=== PATIENT | female | born 1985 | race African-American/Black ===

== ENCOUNTER 2017-06-09 21:36 | Emergency (ER) | payer MEDICAID ==
[~2017-06-09] VITALS: Ht 162.6 cm; Wt 88.9 kg
[2017-06-09] MEDS ORDERED: NKM (21:46)
[2017-06-09 21:51] VITALS: BP 122/86
[2017-06-09] MEDS ORDERED: Ketorolac 60mg Inj IM ONE (22:00)
[2017-06-09] MEDS ORDERED: IBUPROFEN800 M1 PO (22:03)
--- NOTE | 2017-06-09 22:08 | Emergency Room Report ---
History of Present Illness General Chief Complaint: Headache Source: Patient Present Illness HPI [id number] [employer] walk-in with 2 days intermittent right sided temporal headache 03/04, pulsatile Assoc with nausea and some photophobia Denies neck pain/stiffness, fever/chills, vomiting, sick contacts Denies history of migraines Taking ibuprofen, tylenol Last took Tylenol 4 hours ago Didnt take ibuprofen today Allergies: Coded Allergies: No Known Allergies (Unverified , 03/22/14) Patient History Past Medical History: none Past Surgical History: none Pertinent Family History: none Social History: Denies: smoking, alcohol use, drug use Last Menstrual Period: 4 days ago Now: No Immunizations: UTD Reviewed Nursing Documentation: PMH: Agreed, PSxH: Agreed Nursing Documentation-PMH Past Medical History: No Stated History Review of Systems All Other Systems: negative except mentioned in HPI Physical Exam Vital Signs Date Time Temp Pulse Resp B/P (MAP) Pulse Ox O2 Delivery O2 Flow Rate FiO2 06/09/17 21:40 98.1 93 16 122/86 100 Room Air Sp02 EP Interpretation: reviewed, normal General Appearance: normal inspection, well appearing, no apparent distress, alert, GCS 15, non-toxic Head: normocephalic, atraumatic Eyes: bilateral eye PERRL, bilateral eye EOMI ENT: normal ENT inspection, hearing grossly normal, normal pharynx, no angioedema, normal voice Neck: normal inspection, full range of motion, supple, no meningismus, no bony tend Respiratory: normal inspection, lungs clear, normal breath sounds, no respiratory distress, no retraction, no wheezing Cardiovascular #1: regular rate, rhythm, no edema Gastrointestinal: normal inspection, normal bowel sounds, non tender, soft, no guarding, no hernia Genitourinary: no CVA tenderness Musculoskeletal: normal inspection, back normal, normal range of motion, Nehemias' s Sign negative Neurologic: normal inspection, alert, oriented x3, responsive, global marketing manager III-XII nml as tested, motor strength/tone normal, speech normal Psychiatric: normal inspection, judgement/insight normal, mood/affect normal Skin: normal inspection Lymphatic: normal inspection Medical Decision Making Diagnostic Impression: Primary Impression: Headache Qualified Codes: G44.209 - Tension-type headache, unspecified, not intractable ER Course Tension headache vs migraine VSS. Afebrile No focal neuro deficits No meningismus Unlikely SAH or meningitis given above and well appearing and intermittent symptoms Toradol given in ED Rx Ibuprofen PMD followup for Neuro referral if no improvement Last Vital Signs Date Time Temp Pulse Resp B/P (MAP) Pulse Ox O2 Delivery O2 Flow Rate FiO2 06/09/17 21:51 98.1 93 16 122/86 100 Room Air Status: improved Disposition: HOME, SELF-CARE Condition: Improved Scripts Ibuprofen (Ibuprofen) 800 Mg Tablet 800 MG PO TID for headache for 7 Days, #30 TAB Prov: HAYLEY JEWELL M.D. 06/09/17 Patient Instructions: Tension Headache, Migraine Headache Additional Instructions: - Take only 800mg motrin every 8 hours with food - Follow up with your doctor for a neurology referral if headaches continue HAYLEY JEWELL M.D. Jun 09, 2017 22:08
[2017-06-09 22:15] VITALS: BP 122/86
== END 2017-06-09 22:15 | disposition home or self-care (01) ==
LOC: EMR 21:56
DX: R51 Headache (principal)
CPT/HCPCS: 96372; 99283

== ENCOUNTER 2018-01-27 13:18 | Emergency (ER) | payer MEDICAID ==
[~2018-01-27] VITALS: Ht 165.1 cm; Wt 89.8 kg
[~2018-01-27 13:18] MED LIST: IBUPROFEN800 M1 PO; NKM
[2018-01-27 13:50] VITALS: BP 107/63
--- NOTE | 2018-01-27 13:56 | Emergency Room Report ---
History of Present Illness General Chief Complaint: Back Pain-No Injury Source: Patient Present Illness HPI 32-year-old female patient presents to ER complaining of low back pain past few weeks. Patient reports that there was no injury or accident that precipitated pain. Patient reports back pain feels like "muscle tightness" that radiates down her buttock to her legs. States that it occurs bilaterally. Patient reports that the pain is intermittent. denies bowel or bladder incontinence. Denies dysuria, hematuria. Denies IV drug use. Denies history of cancer. Denies history of surgery. Denies fever, chest pain, shortness breath, abdominal pain. Patient denies . Allergies: Coded Allergies: No Known Allergies (Unverified , 03/22/14) Patient History Past Medical History: see triage record Last Menstrual Period: 01/24/2018 Reviewed Nursing Documentation: PMH: Agreed; PSxH: Agreed Nursing Documentation-PMH Past Medical History: No Stated History Review of Systems All Other Systems: negative except mentioned in HPI Physical Exam Vital Signs Date Time Temp Pulse Resp B/P (MAP) Pulse Ox O2 Delivery O2 Flow Rate FiO2 01/27/18 13:32 98.1 103 18 107/63 94 Room Air 98.1 Sp02 EP Interpretation: reviewed, normal General Appearance: well appearing, no apparent distress, alert, GCS 15, non- toxic Head: normocephalic, atraumatic Neck: full range of motion Respiratory: lungs clear, normal breath sounds, no rhonchi, no respiratory distress, no accessory muscle use, no wheezing, speaking full sentences Cardiovascular #1: regular rate, rhythm, no edema Musculoskeletal: back normal, digits/nails normal, gait/station normal, normal range of motion, no calf tenderness, Nehemias's Sign negative, other - no bony stepoff, no no bony tenderness, tender - lumbosacral region bilaterally Neurologic: alert, oriented x3, responsive, motor strength/tone normal, DTRs symmetric, sensory intact, cerebellar normal, normal gait, other - SLR positive bilaterally Psychiatric: mood/affect normal Skin: no rash Lymphatic: no adenopathy Medical Decision Making PA Attestation Dr. Her is my supervising Physician whom patient management has been discussed with. Diagnostic Impression: Primary Impression: Back pain ER Course Pt presents to ED c/o back pain. DDX considered but are not limited to sprain, strain, cauda equine, epidural abscess, AAA, spinal cord compression, kidney stones. Low suspicion for cauda equina, no bowel or bladder incontinence or retention. VITAL SIGNS are WNL, patient is afebrile Ordered pain medication, imaging, labs. ER COURSE: PE positive SLR, probably sciatica symptoms. Informed patient. Need outpatient followup and imaging. UA negative for nitrites, no symptoms, low suspicion for UTI. Discuss results with patient. Xray of lumbar spine shows no acute fracture per the preliminary reading. Discuss results with patient, provided patient with CD of imaging. Followup with pain management and/or PT. Request referral from PCP. Followup wtih PCP for further MRI and/or CT imaging as needed. Patient reports feeling better following the administration of medication. Patient resting comfortably, nontoxic appearing, walking independently without difficulty. DISCHARGE: -Rx provided for Tylenol -Rx provided for Lidocaine patch -Rx provided for Robaxin. SE may cause drowsiness, do not take prior to drinking , driving, or operating [employer] machinery. At this time pt. is stable for d/c to home. At this time patient is resting comfortably, in no acute distress, nontoxic appearing, smiling and talking without difficulty. Will provide printed patient care instructions, and any necessary prescriptions. Patient instructed to follow with primary care provider for further treatment and referral as needed. Care plan and follow up instructions have been discussed with the patient prior to discharge. Patient reports understanding and agreement to treatment plan. Patient questions asked and answered. ER precautions given, patient instructed to return to ER immediately for any new or worsening of symptoms. - Please note that this Emergency Department Report was dictated using [employer] body straightener technology software, occasionally this can lead to erroneous entry secondary to interpretation by the dictation equipment. Labs Test 01/27/18 13:35 Urine Color Pale yellow Urine Appearance Clear Urine pH 6 (4.5-8.0) Urine Specific [place] 1.015 (1.005-1.035) Urine Protein Negative (NEGATIVE) Urine Glucose (UA) Negative (NEGATIVE) Urine Ketones Negative (NEGATIVE) Urine Occult Blood Negative (NEGATIVE) Urine Nitrite Negative (NEGATIVE) Urine Bilirubin Negative (NEGATIVE) Urine Urobilinogen Normal MG/DL (0.0-1.0) Urine Leukocyte Esterase 1+ (NEGATIVE) Urine RBC 0-2 /HPF (0 - 2) Urine WBC 0-2 /HPF (0 - 2) Urine Squamous Epithelial Cells Few /LPF (NONE/OCC) Urine Bacteria Occasional /HPF (NONE) Urine Mucus Few /LPF (NONE/OCC) Other X-Ray Diagnostic Results Other X-Ray Diagnostic Results : X-Ray ordered: lumbar spine # of Views/Limited Vs Complete: 3 View Indication: Pain EP Interpretation: Yes PA Xray: Interpretation reviewed, by supervising MD, and agrees with findings. Interpretation: no dislocation, no soft tissue swelling, no fractures Impression: No acute disease MONIQUE Scriblia Text Santiago French PA-C Last Vital Signs Date Time Temp Pulse Resp B/P (MAP) Pulse Ox O2 Delivery O2 Flow Rate FiO2 01/27/18 13:32 98.1 103 18 107/63 94 Room Air 98.1 Disposition: HOME, SELF-CARE Condition: Stable Scripts Lidocaine (Lidocaine) 1 Each Adh..patch 700 MG TP DAILY for 7 Days, #7 PATCH Prov: Francis French 01/27/18 Acetaminophen* (TYLENOL EXTRA STRENGTH*) 500 Mg Tablet 500 MG ORAL Q8H PRN for Prn Headache/Temp > 101, #30 TAB 0 Refills Prov: Francis French 01/27/18 Methocarbamol* (METHOCARBAMOL*) 500 Mg Tablet 500 MG ORAL TID PRN for For Pain, #15 TAB 0 Refills Prov: Francis French 01/27/18 Patient Instructions: Back Pain, Adult, Sciatica Additional Instructions: Followup with primary care provider in 3 -5 days. Discuss need for further imaging at that time. Discuss treatment for sciatica at that time. Patient instructed on rest, ice and heat for neck pain. Muscle relaxant may cause drowsiness, do not take before drinking, driving, or operating heavy machinery. Take medications as directed. Patient questions asked and answered. ER precautions given, patient instructed to return to ER immediately for any new or worsening of symptoms including but not limited to fever, chest pain, SOB , gina or bladder incontinence. Francis French January 27, 2018 13:56
[2018-01-27] MEDS ORDERED: Acetaminophen 500mg (ES) tab ORAL ONE (14:00)
[2018-01-27] MEDS ORDERED: Methocarbamol 500mg tab ORAL ONE (14:00)
[2018-01-27 14:15] LABS: APPEARANCE,URINE CLEAR; BILIRUBIN, URINE NEGATIVE (NEGATIVE); COLOR,URINE PALE YELLOW; GLUCOSE, URINE (UA) NEGATIVE (NEGATIVE); KETONES,URINE NEGATIVE (NEGATIVE); LEUKOCYTE ESTERASE ,URINE 1+ (NEGATIVE); NITRITE,URINE NEGATIVE (NEGATIVE); PH,URINE 6 (4.5-8.0); PROTEIN,URINE NEGATIVE (NEGATIVE); UROBILINOGEN,URINE NORMAL MG/DL (0.0-1.0)
[2018-01-27] MEDS ORDERED: LIDOCAINE700 M1 TP (15:07)
[2018-01-27] MEDS ORDERED: TYLENOL EXTRA500 MG ORAL (15:07)
[2018-01-27] MEDS ORDERED: METHOCARBAMOL500 MG ORAL (15:07)
[2018-01-27 16:27] VITALS: BP 107/63
== END 2018-01-27 16:28 | disposition home or self-care (01) ==
LOC: EMR 14:10
DX: M54.5 Low back pain (principal)
CPT/HCPCS: 72020; 81003; 99284

== ENCOUNTER 2020-02-26 13:33 | Emergency (ER) | payer MEDICAID ==
[~2020-02-26] VITALS: Ht 162.6 cm; Wt 90.7 kg
[~2020-02-26 13:33] MED LIST changes: +LIDOCAINE700 M1 TP; +METHOCARBAMOL500 MG ORAL; +TYLENOL EXTRA500 MG ORAL
--- NOTE | 2020-02-26 14:22 | Emergency Room Report ---
History of Present Illness General Chief Complaint: Complications Source: Patient Present Illness HPI 34-year-old female presents to the emergency department complaining of dysuria, scant vaginal bleeding and 4 out of 10 severity lower abdominal cramping progressive x2 days. Patient denies fevers or chills. Patient reports she is 22 weeks . Patient reports she is G2, P1 with no previous complications during her first . Patient states she has been receiving adequate care. She denies nausea, vomiting, abdominal tenderness or vaginal discharge. Patient denies low back pain. Patient states she is not sure what blood type she is. She denies having a history of any blood dyscrasia or anemia. No other aggravating or relieving factors at this time. Allergies: Coded Allergies: No Known Allergies (Unverified , 03/22/14) COVID-19 Screening Contact w/high risk pt: No Recent Travel to affected area: No Experienced COVID-19 symptoms?: No COVID-19 Testing performed CRUTCHER HELPER: No Patient History Past Medical History: see triage record Past Surgical History: none Pertinent Family History: none Now: Yes - 22 weeks : 2 Para: 1 Reviewed Nursing Documentation: PMH: Agreed; PSxH: Agreed Nursing Documentation-PMH Past Medical History: No Stated History Review of Systems All Other Systems: negative except mentioned in HPI Physical Exam Vital Signs Date Time Temp Pulse Resp B/P (MAP) Pulse Ox O2 Delivery O2 Flow Rate FiO2 02/26/20 13:49 98.2 110 20 121/86 (98) 98 Sp02 EP Interpretation: reviewed, normal General Appearance: no apparent distress, alert, GCS 15, non-toxic Head: normocephalic, atraumatic Eyes: bilateral eye normal inspection, bilateral eye PERRL ENT: hearing grossly normal, normal voice Neck: full range of motion Respiratory: lungs clear, normal breath sounds, no respiratory distress, no wheezing, speaking full sentences Cardiovascular #1: regular rate, rhythm Gastrointestinal: normal bowel sounds, non tender, soft, non-distended Genitourinary: normal inspection, no CVA tenderness, deferred - for US Musculoskeletal: back normal, normal range of motion, gait/station normal, non- tender Neurologic: alert, motor strength/tone normal, oriented x3, sensory intact, responsive, speech normal Psychiatric: judgement/insight normal Skin: no rash Medical Decision Making PA Attestation Dr. Her is my supervising Physician whom patient management has been discussed with. Diagnostic Impression: Primary Impression: UTI (urinary tract infection) Qualified Codes: N30.01 - Acute cystitis with hematuria ER Course 34-year-old female presents to the emergency department complaining of dysuria, scant vaginal bleeding and 4 out of 10 severity lower abdominal cramping progressive x2 days. Patient denies fevers or chills. Patient reports she is 22 weeks . Patient reports she is G2, P1 with no previous complications during her first . Patient states she has been receiving adequate care. She denies nausea, vomiting, abdominal tenderness or vaginal discharge. Patient denies low back pain. Patient states she is not sure what blood type she is. She denies having a history of any blood dyscrasia or anemia. No other aggravating or relieving factors at this time. Ddx considered but are not limited to: Fibroid, ectopic , Fibroid, Spontaneous ,placenta previa, placenta abruptio Vital signs: are WNL, pt. is afebrile H&PE are most consistent with: spotting during early , Inevitable , Spontaneous ORDERS: -CBC: Anemia - hgb 9.0 -UA: Increase in inflammatory markers as well as presence of few bacteria-- c/w UTI -Urine hcg- Positive -Serum Hcg Quant: 14,053 - Blood/RH type and screen- see attached labs -Pelvic US complete-single IUP approx 21 weeks, with heart rate of 154, no free fluid cervical length of 3.5 cm. ED INTERVENTIONS: None at this time. DISCHARGE: At this time pt. is stable for d/c to home. Will provide printed patient care instructions, and any necessary prescriptions. Care plan and follow up instructions have been discussed with the patient prior to discharge. Labs Test 02/26/20 14:00 02/26/20 14:10 Urine Color Yellow Urine Appearance Clear Urine pH 6.5 (4.5-8.0) Urine Specific [place] 1.010 (1.005-1.035) Urine Protein Negative (NEGATIVE) Urine Glucose (UA) Negative (NEGATIVE) Urine Ketones Negative (NEGATIVE) Urine Blood 1+ (NEGATIVE) Urine Nitrite Negative (NEGATIVE) Urine Bilirubin Negative (NEGATIVE) Urine Urobilinogen Normal MG/DL (0.0-1.0) Urine Leukocyte Esterase 3+ (NEGATIVE) Urine RBC 0-2 /HPF (0 - 2) Urine WBC 20-30 /HPF (0 - 2) Urine Squamous Epithelial Cells Few /LPF (NONE/OCC) Urine Bacteria Few /HPF (NONE) White Blood Count 9.3 K/UL (4.8-10.8) Red Blood Count 4.26 M/UL (4.20-5.40) Hemoglobin 9.0 G/DL (12.0-16.0) Hematocrit 28.3 % (37.0-47.0) Mean Corpuscular Volume 66 FL (80-99) Mean Corpuscular Hemoglobin 21.2 PG (27.0-31.0) Mean Corpuscular Hemoglobin Concent 32.0 G/DL (32.0-36.0) Red Cell Distribution Width 14.8 % (11.6-14.8) Platelet Count 317 K/UL (150-450) Mean Platelet Volume 6.2 FL (6.5-10.1) Neutrophils (%) (Auto) % (45.0-75.0) Lymphocytes (%) (Auto) % (20.0-45.0) Monocytes (%) (Auto) % (1.0-10.0) Eosinophils (%) (Auto) % (0.0-3.0) Basophils (%) (Auto) % (0.0-2.0) Differential Total Cells Counted 100 Neutrophils % (Manual) 62 % (45-75) Lymphocytes % (Manual) 26 % (20-45) Monocytes % (Manual) 6 % (1-10) Eosinophils % (Manual) 2 % (0-3) Basophils % (Manual) 0 % (0-2) Band Neutrophils 4 % (0-8) Platelet Estimate Adequate Platelet Morphology Normal Hypochromasia 1+ Anisocytosis 1+ Microcytosis 1+ Schistocytes Occasional Human Chorionic Gonadotropin, Quant 20070 mIU/mL (1-6) CT/MRI/US Diagnostic Results CT/MRI/US Diagnostic Results : Imaging Test Ordered: OB US > 14 wks Impression "Single IUP approx 21 weeks, with heart rate of 154, no free fluid cervical length of 3.5 cm." --- Per official radiology report- Please see report for specific details. Last Vital Signs Date Time Temp Pulse Resp B/P (MAP) Pulse Ox O2 Delivery O2 Flow Rate FiO2 6/3/20 13:49 98.2 110 20 121/86 (98) 98 Disposition: HOME, SELF-CARE Condition: Stable Scripts Cephalexin* (KEFLEX*) 500 Mg Capsule 500 MG ORAL EVERY 12 HOURS for 7 Days, #14 CAP 0 Refills Prov: Lizzie Calderón 02/26/20 Iron,Carbonyl/Vit C/Vit B12/Fa (IRON 100 PLUS TABLET) 1 Each Tablet 1 EACH PO BID, #14 TAB Prov: Lizzie Calderón 02/26/20 Patient Instructions: Anemia, Nonspecific, Urinary Tract Infection, Easy-to- Read Additional Instructions: Take medications as directed. Follow up with a OBGYN within 3 days, even if your symptoms have resolved. US shows 21 Weeks IUP with HR of 154. Return sooner to ED if new symptoms occur, or current symptoms become worse. - Please note that this Emergency Department Report was dictated using [employer] tender technology software, occasionally this can lead to erroneous entry secondary to interpretation by the dictation equipment. Lizzie Calderón Feb 26, 2020 14:22
[2020-02-26 14:41] LABS: HEMATOCRIT 28.3 % (37.0-47.0); MEAN CORPUSCULAR VOLUME 66 FL (80-99); PLATELET COUNT 317 K/UL (150-450); RED BLOOD COUNT 4.26 M/UL (4.20-5.40); RED CELL DISTRIBUTION WIDTH 14.8 % (11.6-14.8); WHITE BLOOD COUNT 9.3 K/UL (4.8-10.8)
[2020-02-26 14:51] LABS: APPEARANCE,URINE CLEAR; BILIRUBIN, URINE NEGATIVE (NEGATIVE); GLUCOSE, URINE (UA) NEGATIVE (NEGATIVE); KETONES,URINE NEGATIVE (NEGATIVE); LEUKOCYTE ESTERASE ,URINE 3+ (NEGATIVE); NITRITE,URINE NEGATIVE (NEGATIVE); PH,URINE 6.5 (4.5-8.0); PROTEIN,URINE NEGATIVE (NEGATIVE); UROBILINOGEN,URINE NORMAL MG/DL (0.0-1.0)
[2020-02-26 15:01] LABS: COLOR,URINE YELLOW
--- NOTE | 2020-02-26 15:57 | Diagnostic Imaging Report ---
Indication: patient, abdominal cramping and vaginal spotting Technique: Transabdominal images of the uterus and fetus Comparison: none Findings: There is an active single live intrauterine , in. There is positive heart activity, heart rate 154 bpm. The placenta is high fundal, extending both anteriorly and posteriorly, clears the internal cervical os. The cervix is closed, measures 3.3 cm in length. Amniotic fluid index is 12.8 cm. Estimated gestational age by average of ultrasound measurements is 21 weeks one day. Estimated date of delivery is 07/07/2020. Estimated gestational age by dates is 19 weeks 4 days. Only limited assessment of anatomy performed, due to emergent nature of exam. Grossly normal three-vessel cord, spine, urinary bladder, four-chamber heart, stomach Impression: 21 week one day, by average of ultrasound measurements, single live intrauterine . No unusual features
[2020-02-26] MEDS ORDERED: IRON 100 PLUS1 EACH PO (16:06)
[2020-02-26] MEDS ORDERED: CEPHALEXIN500 MG ORAL (16:06)
[2020-02-26 16:20] VITALS: BP 121/86
== END 2020-02-26 16:36 | disposition home or self-care (01) ==
LOC: EMR 14:45
DX: O23.12 Infections of bladder in pregnancy, second trimester (principal); N30.01 Acute cystitis with hematuria; Z3A.21 21 weeks gestation of pregnancy
CPT/HCPCS: 36415; 76805; 76817; 81003; 84702; 85007; 85025; 86900; 86901; 87086; Z7502; 99284